=== PATIENT | female | born 1935 | race African-American/Black ===

== ENCOUNTER 2016-11-07 12:20 | Observation (INO) | payer MEDICARE ==
[~2016-11-07] VITALS: Ht 165.1 cm; Wt 73.7 kg
--- NOTE | 2016-11-07 13:00 | EKG ---
[facility] [address] [place] [address] Test Date: 2016-11-07 Test Time: 12:39:52 Pat Name: ROMANA WAGNER Department: Room: Gender: F Director [employer]oles[employer]: : 1935 Requested By: BRENDON VILLA Order Number: [id number] Reading MD: Measurements Intervals [place] Rate: 62 P: 39 ID: [id number] QRS: -18 QRSD: 86 T: 26 QT: 378 QTc: 386 Interpretive Statements SINUS RHYTHM LEFTWARD AXIS QRS(T) CONTOUR ABNORMALITY CONSIDER ANTEROLATERAL MYOCARDIAL DAMAGE RI6.01 Unconfirmed report No previous ECG available for comparison
[2016-11-07 13:09] LABS: BASO # 0.1 x10^3/uL (0.0-0.2); BASO % 2 % (0-3); EOS % 1 % (0-3); HEMATOCRIT 39.7 % (36.0-47.0); HEMOGLOBIN 12.3 g/dL (12.0-15.5); LYMPH # 2.3 x10^3/uL (1.0-4.8); LYMPH % 31 % (24-48); MEAN CORPUSCULAR HEMOGLOBIN 21 pg (25-35); MEAN CORPUSCULAR HGB CONC 31 g/dL (31-37); MEAN CORPUSCULAR VOLUME 69 fL (79-100); MONO % 8 % (0-9); NEUT % 58 % (31-73); PLATELET COUNT 220 x10^3/uL (140-400); RED BLOOD COUNT 5.74 x10^6/uL (3.50-5.40); RED CELL DISTRIBUTION WIDTH 16.1 % (11.5-14.5); WHITE BLOOD COUNT 7.6 x10^3/uL (4.0-11.0)
[2016-11-07 13:18] LABS: INR 1.2 (0.8-1.1); PROTHROMBIN TIME PATIENT 14.7 SEC (11.7-14.0)
[2016-11-07] MEDS ORDERED: LOSA25TA4 PO (13:29)
[2016-11-07] MEDS ORDERED: COLE3.754 PO (13:29)
[2016-11-07] MEDS ORDERED: CHOL100013 PO (13:29)
[2016-11-07] MEDS ORDERED: FURO20TA3 PO (13:29)
[2016-11-07] MEDS ORDERED: OMEG500C PO (13:29)
[2016-11-07] MEDS ORDERED: ASPI81TA2 PO (13:29)
[2016-11-07] MEDS ORDERED: POTA10CA PO (13:29)
[2016-11-07] MEDS ORDERED: CLON0.1T PO (13:29)
[2016-11-07] MEDS ORDERED: AMLO10TA2 PO (13:29)
[2016-11-07 13:33] LABS: CALCIUM 9.3 mg/dL (8.5-10.1); CREATININE 1.1 mg/dL (0.6-1.0); GFR 57.8; POTASSIUM 4.4 mmol/L (3.5-5.1)
[2016-11-07 13:39] LABS: ALBUMIN 4.1 g/dL (3.4-5.0); DIRECT BILIRUBIN 0.1 mg/dL (0.0-0.2); TOTAL BILIRUBIN 0.6 mg/dL (0.2-1.0); TOTAL PROTEIN 7.3 g/dL (6.4-8.2)
[2016-11-07] MEDS ORDERED: LABETALOL 20 MG/4 ML DISP.SYRIN. IVP ONE (13:45)
--- NOTE | 2016-11-07 13:54 | RAD ---
EXAM: CT head without contrast. HISTORY: Dizziness. TECHNIQUE: Computed tomography of the head was performed without intravenous contrast. COMPARISON: None. FINDINGS: There is no intracranial hemorrhage. Grover-white differentiation is preserved for patient age. The ventricles are normal in size and position. The visualized paranasal sinuses appear clear. The orbits are unremarkable. The temporal bones are unremarkable. The calvarium reveals no suspicious lesions. IMPRESSION: 1. No acute intracranial findings. *One or more of the following individualized dose reduction techniques were utilized for this examination: 1. Automated exposure control. 2. Adjustment of the mA and/or kV according to patient size. 3. Use of iterative reconstruction technique.
[2016-11-07] MEDS ORDERED: hydrALAZINE 20 MG/ML VIAL. IVP ONE ×2 (14:00→16:00)
[2016-11-07 14:01] LABS: BILIRUBIN,URINE NEGATIVE (NEG); GLUCOSE,URINE NEGATIVE (NEG); NITRITE,URINE NEGATIVE (NEG); PROTEIN,URINE NEGATIVE (NEG-TRACE); UROBILINOGEN,URINE 0.2 mg/dL (0.2 mg/dL)
--- NOTE | 2016-11-07 14:01 | RAD ---
Portable chest, 11/07/2016: History: Dizziness and facial numbness Comparison is made to a study from 10/29/2009. The heart is mildly enlarged. There is aortic calcific plaquing. The pulmonary vascularity is normal. No pulmonary infiltrates are seen. There is no evidence of pleural fluid. IMPRESSION: No acute cardiopulmonary abnormality is detected.
[2016-11-07 14:14] LABS: BACTERIA,URINE FEW /HPF (0-FEW); RBC,URINE 0 /HPF (0-2); SQUAMOUS EPITHELIAL CELL,UR FEW /LPF
[2016-11-07 15:20] LABS: PLT ESTIMATE ADEQUATE (ADEQUATE)
[2016-11-07 15:21] LABS: HYPOCHROMIA SLIGHT; MICROCYTOSIS MOD
[2016-11-07 15:22] LABS: ANISOCYTOSIS SLIGHT; POIKILOCYTOSIS SLIGHT
--- NOTE | 2016-11-07 16:01 | PHYS DOC ---
Past Medical History Past Medical History: High Cholesterol, Hypertension Past Surgical History: Hysterectomy, Other Additional Past Surgical Histo: nerve release in knee Alcohol Use: None Drug Use: None Adult General Chief Complaint Chief Complaint: DIZZY/LIGHT HEADED HPI HPI 81-year-old female presenting to the emergency department after being transferred from her primary care physician's office today after describing right-sided foot and arm numbness along with left-sided facial numbness. She denies any slurring of speech or weakness. She denies vision changes. This started approximately 2 or 3 days ago. Location brain. Duration intermittent. No alleviating factors present. Review of systems is negative for chest pain service of breath abdominal pain nausea vomiting diaphoresis. All other review of systems is negative unless otherwise noted in history of present illness. Review of Systems Review of Systems SEE ABOVE. Current Medications Current Medications Current Medications Medications (Trade) Dose Ordered Sig/Mary Grace Start Time Stop Time Status Last Admin Dose Admin Hydralazine HCl (Apresoline) 10 mg 1X ONCE 11/07/16 14:00 11/07/16 14:01 DC 11/07/16 13:59 10 MG Labetalol HCl (Normodyne) 20 mg 1X ONCE 11/07/16 13:45 11/07/16 13:50 DC Allergies Allergies Allergies Coded Allergies Type Severity Reaction Last Updated Verified penicillin Allergy Mild Rash 07/17/15 No Physical Exam Physical Exam Constitutional: Well developed, well nourished, no acute distress, non-toxic appearance. HENT: Normocephalic, atraumatic, bilateral external ears normal, oropharynx moist, no oral exudates, nose normal. [] Eyes: PERRLA, EOMI, conjunctiva normal, no discharge. Neck: Normal range of motion, no tenderness, supple, no stridor. [] Cardiovascular:Heart rate regular rhythm, no murmur [] Lungs & Thorax: Bilateral breath sounds clear to auscultation Abdomen: Bowel sounds normal, soft, no tenderness, no masses, no pulsatile masses. [] Skin: Warm, dry, no erythema, no rash. Back: No tenderness, no CVA tenderness. Extremities: No tenderness, no cyanosis, no clubbing, ROM intact, no edema. [] Neurologic: Mental status: Awake oriented and alert x3 Cranial nerves: Extraocular movements intact, eyebrows shonda bilaterally smile symmetric, uvula elevation, shoulder shrug intact, tongue protrusion normal Sensation: Patient reports decreased sensation in the right upper and right lower extremity. She also describes decreased sensation of the left face. Strength: 5/5 in upper and lower extremities bilaterally Psychologic: Affect normal, judgement normal, mood normal. [] Current Patient Data Vital Signs Vital Signs Date Time Temp Pulse Resp B/P Pulse Ox O2 Delivery O2 Flow Rate FiO2 11/07/16 15:48 66 16 202/85 100 Room Air 11/07/16 12:38 97.9 97.9 Lab Values Laboratory Tests Test 11/07/16 12:28 11/07/16 12:58 Urine Collection Type Unknown Urine Color Yellow Urine Clarity Clear Urine pH 5.0 Urine Specific [place] 1.015 Urine Protein Negativemg/dL (NEG-TRACE) Urine Glucose (UA) Negativemg/dL (NEG) Urine Ketones (Stick) Negativemg/dL (NEG) Urine Blood Negative (NEG) Urine Nitrite Negative (NEG) Urine Bilirubin Negative (NEG) Urine Urobilinogen Dipstick 0.2mg/dL (0.2 mg/dL) Urine Leukocyte Esterase Negative (NEG) Urine RBC 0/HPF (0-2) Urine WBC 5-10/HPF (0-4) Urine Squamous Epithelial Cells Few/LPF Urine Bacteria Few/HPF (0-FEW) Urine Hyaline Casts Occasional/HPF Urine Mucus Slight/LPF White Blood Count 7.6x10^3/uL (4.0-11.0) Red Blood Count 5.74x10^6/uL (3.50-5.40) H Hemoglobin 12.3g/dL (12.0-15.5) Hematocrit 39.7% (36.0-47.0) Mean Corpuscular Volume 69fL (79-100) L Mean Corpuscular Hemoglobin 21pg (25-35) L Mean Corpuscular Hemoglobin Concent 31g/dL (31-37) Red Cell Distribution Width 16.1% (11.5-14.5) H Platelet Count 220x10^3/uL (140-400) Neutrophils (%) (Auto) 58% (31-73) Lymphocytes (%) (Auto) 31% (24-48) Monocytes (%) (Auto) 8% (0-9) Eosinophils (%) (Auto) 1% (0-3) Basophils (%) (Auto) 2% (0-3) Neutrophils # (Auto) 4.4x10^3uL (1.8-7.7) Lymphocytes # (Auto) 2.3x10^3/uL (1.0-4.8) Monocytes # (Auto) 0.6x10^3/uL (0.0-1.1) Eosinophils # (Auto) 0.1x10^3/uL (0.0-0.7) Basophils # (Auto) 0.1x10^3/uL (0.0-0.2) Platelet Estimate Adequate (ADEQUATE) Hypochromasia Slight Poikilocytosis Slight Anisocytosis Slight Microcytosis Mod Prothrombin Time 14.7SEC (11.7-14.0) H Prothrombin Time INR 1.2 (0.8-1.1) H PTT 46SEC (24-38) H Sodium Level 144mmol/L (136-145) Potassium Level 4.4mmol/L (3.5-5.1) Chloride Level 107mmol/L (98-107) Carbon Dioxide Level 25mmol/L (21-32) Anion Gap 12 (6-14) Blood Urea Nitrogen 18mg/dL (7-20) Creatinine 1.1mg/dL (0.6-1.0) H Estimated GFR (Cockcroft-Gault) 57.8 Glucose Level 100mg/dL (70-99) H Calcium Level 9.3mg/dL (8.5-10.1) Total Bilirubin 0.6mg/dL (0.2-1.0) Direct Bilirubin 0.1mg/dL (0.0-0.2) Aspartate Amino Transferase (AST) 17U/L (15-37) Alanine Aminotransferase (ALT) 14U/L (14-59) Alkaline Phosphatase 84U/L (46-116) Troponin I Quantitative < 0.017ng/mL (0.000-0.055) Total Protein 7.3g/dL (6.4-8.2) Albumin 4.1g/dL (3.4-5.0) Lipase 145U/L (73-393) Laboratory Tests 11/07/16 12:58 Laboratory Tests 11/07/16 12:58 EKG EKG [] EKG not suggestive of ischemia. Sinus rhythm. Radiology/Procedures Radiology/Procedures [] Course & Med Decision Making Course & Med Decision Making Pertinent Labs and Imaging studies reviewed. (See chart for details) [] 81-year-old female presenting to the emergency department today with left- sided facial numbness and right upper and lower extremity numbness. Vital signs showed significant hypertension which was treated with hydralazine. Physical exam showed sensory numbness and tingling in an anatomic distribution. Otherwise neurologic exam was unremarkable. Head CT unremarkable. EKG unremarkable. CBC shows normal hemoglobin and white blood cell count. Urinalysis not suggestive of infection. Chemistry panel otherwise unremarkable. Troponin negative. The patient was then admitted to our hospital for further evaluation workup care including MRI and neurology consultation given the anatomic distribution of the patient's sensory changes. Dragon Disclaimer Dragon Disclaimer This electronic medical record was generated, in whole or in part, using a voice recognition dictation system. Departure Departure Impression: Primary Impression: Numbness of right hand Additional Impressions: Numbness in right leg Numbness and tingling of left side of face Disposition: ADMITTED INPATIENT Admitting Physician: Other ([place]) Condition: STABLE Referrals: ARSLAN CERNA MD (PCP) Problem Qualifiers BRENDON VILLA MD Nov 07, 2016 16:01
[2016-11-07] MEDS ORDERED: MORPHINE SULFATE 2 MG/ML DISP.SYRIN. IV PRN (16:15)
[2016-11-07] MEDS ORDERED: ONDANSETRON PF 4 MG/2 ML VIAL. IV PRN (16:15)
[2016-11-07 17:43] VITALS: BP 154/69
[2016-11-07] MEDS ORDERED: PROMETHAZINE 6.25 MG in IV NORMAL SALINE 50ML 50 ML IV PRN (18:45)
[2016-11-07 19:00] VITALS: BP 180/67
[2016-11-07] MEDS: ACETAMINOPHEN 325 MG TABLET. PO PRN (19:59)
[2016-11-07 23:00] VITALS: BP 149/54
[2016-11-08] VITALS (7 sets, daily range): BP systolic 130–184; BP diastolic 50–67
[2016-11-08] MEDS: ACETAMINOPHEN 325 MG TABLET. PO PRN ×3 (03:18→21:18)
[2016-11-08 04:52] LABS: BASO % 0 % (0-3); EOS % 0 % (0-3); HEMATOCRIT 38.8 % (36.0-47.0); HEMOGLOBIN 11.9 g/dL (12.0-15.5); LYMPH # 1.7 x10^3/uL (1.0-4.8); LYMPH % 14 % (24-48); MEAN CORPUSCULAR HEMOGLOBIN 21 pg (25-35); MEAN CORPUSCULAR HGB CONC 31 g/dL (31-37); MEAN CORPUSCULAR VOLUME 69 fL (79-100); MONO % 7 % (0-9); NEUT % 80 % (31-73); PLATELET COUNT 234 x10^3/uL (140-400); RED BLOOD COUNT 5.61 x10^6/uL (3.50-5.40); RED CELL DISTRIBUTION WIDTH 15.7 % (11.5-14.5); WHITE BLOOD COUNT 12.7 x10^3/uL (4.0-11.0)
[2016-11-08 05:26] LABS: CALCIUM 9.1 mg/dL (8.5-10.1); CREATININE 1.3 mg/dL (0.6-1.0); GFR 47.7; POTASSIUM 4.1 mmol/L (3.5-5.1)
--- NOTE | 2016-11-08 08:37 | PDOC1 ---
History and Physical Date of Admission Date of Admission DATE: 11/07/16 Identification/Chief Complaint Chief Complaint Numbness left side of face and right arm Source Source: Patient History of Present Illness History of Present Illness Pt states that her symptoms started 2 weeks ago with numbness of the left side of her face, right arm and in both feet. She states that it seems to come and go. She was also experiencing dizziness. Pt initially had an appointment to be seen 11/26/16, but was able to get an earlier appointment to see Dr. Gill yesterday and was immediately sent to the hospital for evaluation. She says that since her blood pressure has been treated, her symptoms have resolved. She had some nausea yesterday from receiving medications on an empty stomach but says that those symptoms are better as well. She has not missed any doses of medication at home. Past Medical History Cardiovascular: HTN Pulmonary: No pertinent hx GI: No pertinent hx Heme/Onc: No pertinent hx Hepatobiliary: No pertinent hx Psych: No pertinent hx Musculoskeletal: Osteoarthritis Rheumatologic: No pertinent hx Infectious disease: No pertinent hx ENT: No pertinent hx Renal/: Chronic renal insuff Endocrine: No pertinent hx Dermatology: No pertinent hx Past Surgical History Past Surgical History: Cataract Removal, Hysterectomy, Other (Rectocele Repair , Left knee surgery) Family History Family History: Cancer, Coronary Artery Disease, Heart Disease Social History Smoke: No ALCOHOL: occassional Drugs: None Current Problem List Problem List Problems Medical Problems: (1) Numbness and tingling of left side of face Status: Acute (2) Numbness in right leg Status: Acute (3) Numbness of right hand Status: Acute Problems: Current Medications Current Medications Current Medications Labetalol HCl (Normodyne) 20 mg 1X ONCE IVP ; Start 11/07/16 at 13:45; Stop 06/16 at 13:50; Status DC Hydralazine HCl (Apresoline) 10 mg 1X ONCE IVP Last administered on 11/07/16 13:59; Start 11/07/16 at 14:00; Stop 11/07/16 at 14:01; Status DC Hydralazine HCl (Apresoline) 10 mg 1X ONCE IVP Last administered on 11/07/16 16:22; Start 11/07/16 at 16:00; Stop 11/07/16 at 16:02; Status DC Ondansetron HCl (Zofran) 4 mg PRN Q8HRS PRN IV NAUSEA/VOMITING Last administered on 11/07/16 17:08; Start 11/07/16 at 16:15; Stop 11/08/16 at 16:14 Morphine Sulfate 2 mg 2 mg PRN Q2HR PRN IV PAIN; Start 11/07/16 at 16:15; Stop 11/08/16 at 16:14 Promethazine HCl/ Sodium Chloride (Phenergan/Iv Sodium Chloride 0.9% 50ml) 50.25 ml @ 150.75 mls/ hr PRN Q6HRS PRN IV NAUSEA/VOMITING Last administered on 11/07/16 19:28; Start 11/07/16 at 18:45 Acetaminophen (Tylenol) 650 mg PRN Q6HRS PRN PO MILD PAIN / TEMP Last administered on 11/08/16 03:18; Start 11/07/16 at 20:00 Active Scripts Active Reported Fish Oil ([place]-3 Fatty Acids) 500 Mg Capsule.dr Unknown Dose PO DAILY Vitamin D (Cholecalciferol (Vitamin D3)) 1,000 Unit Capsule Unknown Dose PO DAILY Aspirin 81 Mg Tab.chew 1 Tab PO DAILY Welchol (Colesevelam Hcl) 3.75 Gm Powd.pack 3.75 Gm PO DAILY Losartan Potassium 25 Mg Tablet Unknown Dose PO DAILY Furosemide 20 Mg Tablet Unknown Dose PO DAILY Potassium Chloride 10 Meq Capsule.er Unknown Dose PO DAILY Amlodipine Besylate 10 Mg Tablet 10 Mg PO DAILY Clonidine Hcl 0.1 Mg Tablet Unknown Dose PO BID Allergies Allergies: Coded Allergies: penicillin (Unverified Allergy, Mild, Rash, 07/17/15) ROS General: No: Chills, Fatigue, Night Sweats PSYCHOLOGICAL ROS: No: Anxiety, Depression Eyes: No Decreased vision, No Eye Pain HEENT: No: Nasal congestion, Sore Throat ALLERGY AND IMMUNOLOGY: No: Hives, Post Nasal Drip Hematological and Lymphatic: No: Bleeding Problems, Blood Clots Respiratory: No: Cough, Shortness of breath Cardiovascular: No Chest Pain, No Edema, No Palpitations Gastrointestinal: Yes Nausea, No Abdominal Pain, No Constipation, No Diarrhea, No Vomiting Genitourinary: No Dysuria, No Urgency Musculoskeletal: No Gait Disturbance, No Joint Pain Neurological: Yes Dizziness, Yes Headaches, Yes Numbness/Tingling, No Confusion, No Impaired Coord/balance, No Weakness Skin: No Rash, No Skin Lesion Changes Physical Exam General: Alert, Oriented X3, Cooperative, No acute distress HEENT: Atraumatic, PERRLA, EOMI, Mucous membr. moist/pink Lungs: Clear to auscultation, Normal air movement Heart: RRR, no rubs, no gallops, no murmurs Abdomen: Normal bowel sounds, Soft, No tenderness, No hepatosplenomegaly Extremities: No clubbing, No cyanosis, No edema Skin: No rashes, No significant lesion Neuro: Normal speech, Normal tone, Cranial nerves 3-12 NL Psych/Mental Status: Mental status NL, Mood NL Vitals Vitals Vital Signs Date Time Temp Pulse Resp B/P Pulse Ox O2 Delivery O2 Flow Rate FiO2 11/08/16 08:09 79 168/60 11/08/16 07:00 98.4 17 97 Room Air 98.4 Labs Labs Laboratory Tests Test 11/07/16 12:28 11/07/16 12:58 11/08/16 04:00 Urine Collection Type Unknown Urine Color Yellow Urine Clarity Clear Urine pH 5.0 Urine Specific [place] 1.015 Urine Protein Negativemg/dL (NEG-TRACE) Urine Glucose (UA) Negativemg/dL (NEG) Urine Ketones (Stick) Negativemg/dL (NEG) Urine Blood Negative (NEG) Urine Nitrite Negative (NEG) Urine Bilirubin Negative (NEG) Urine Urobilinogen Dipstick 0.2mg/dL (0.2 mg/dL) Urine Leukocyte Esterase Negative (NEG) Urine RBC 0/HPF (0-2) Urine WBC 5-10/HPF (0-4) Urine Squamous Epithelial Cells Few/LPF Urine Bacteria Few/HPF (0-FEW) Urine Hyaline Casts Occasional/HPF Urine Mucus Slight/LPF White Blood Count 7.6x10^3/uL (4.0-11.0) 12.7x10^3/uL (4.0-11.0) Red Blood Count 5.74x10^6/uL (3.50-5.40) 5.61x10^6/uL (3.50-5.40) Hemoglobin 12.3g/dL (12.0-15.5) 11.9g/dL (12.0-15.5) Hematocrit 39.7% (36.0-47.0) 38.8% (36.0-47.0) Mean Corpuscular Volume 69fL (79-100) 69fL (79-100) Mean Corpuscular Hemoglobin 21pg (25-35) 21pg (25-35) Mean Corpuscular Hemoglobin Concent 31g/dL (31-37) 31g/dL (31-37) Red Cell Distribution Width 16.1% (11.5-14.5) 15.7% (11.5-14.5) Platelet Count 220x10^3/uL (140-400) 234x10^3/uL (140-400) Neutrophils (%) (Auto) 58% (31-73) 80% (31-73) Lymphocytes (%) (Auto) 31% (24-48) 14% (24-48) Monocytes (%) (Auto) 8% (0-9) 7% (0-9) Eosinophils (%) (Auto) 1% (0-3) 0% (0-3) Basophils (%) (Auto) 2% (0-3) 0% (0-3) Neutrophils # (Auto) 4.4x10^3uL (1.8-7.7) 10.1x10^3uL (1.8-7.7) Lymphocytes # (Auto) 2.3x10^3/uL (1.0-4.8) 1.7x10^3/uL (1.0-4.8) Monocytes # (Auto) 0.6x10^3/uL (0.0-1.1) 0.8x10^3/uL (0.0-1.1) Eosinophils # (Auto) 0.1x10^3/uL (0.0-0.7) 0.0x10^3/uL (0.0-0.7) Basophils # (Auto) 0.1x10^3/uL (0.0-0.2) 0.0x10^3/uL (0.0-0.2) Platelet Estimate Adequate (ADEQUATE) Hypochromasia Slight Poikilocytosis Slight Anisocytosis Slight Microcytosis Mod Prothrombin Time 14.7SEC (11.7-14.0) Prothromb Time International Ratio 1.2 (0.8-1.1) Activated Partial Thromboplast Time 46SEC (24-38) Sodium Level 144mmol/L (136-145) 144mmol/L (136-145) Potassium Level 4.4mmol/L (3.5-5.1) 4.1mmol/L (3.5-5.1) Chloride Level 107mmol/L (98-107) 107mmol/L (98-107) Carbon Dioxide Level 25mmol/L (21-32) 24mmol/L (21-32) Anion Gap 12 (6-14) 13 (6-14) Blood Urea Nitrogen 18mg/dL (7-20) 19mg/dL (7-20) Creatinine 1.1mg/dL (0.6-1.0) 1.3mg/dL (0.6-1.0) Estimated GFR (Cockcroft-Gault) 57.8 47.7 Glucose Level 100mg/dL (70-99) 121mg/dL (70-99) Calcium Level 9.3mg/dL (8.5-10.1) 9.1mg/dL (8.5-10.1) Total Bilirubin 0.6mg/dL (0.2-1.0) Direct Bilirubin 0.1mg/dL (0.0-0.2) Aspartate Amino Transf (AST/SGOT) 17U/L (15-37) Alanine Aminotransferase (ALT/SGPT) 14U/L (14-59) Alkaline Phosphatase 84U/L (46-116) Troponin I Quantitative < 0.017ng/mL (0.000-0.055) Total Protein 7.3g/dL (6.4-8.2) Albumin 4.1g/dL (3.4-5.0) Lipase 145U/L (73-393) Laboratory Tests Test 11/07/16 12:28 11/07/16 12:58 11/08/16 04:00 Urine Collection Type Unknown Urine Color Yellow Urine Clarity Clear Urine pH 5.0 Urine Specific [place] 1.015 Urine Protein Negativemg/dL (NEG-TRACE) Urine Glucose (UA) Negativemg/dL (NEG) Urine Ketones (Stick) Negativemg/dL (NEG) Urine Blood Negative (NEG) Urine Nitrite Negative (NEG) Urine Bilirubin Negative (NEG) Urine Urobilinogen Dipstick 0.2mg/dL (0.2 mg/dL) Urine Leukocyte Esterase Negative (NEG) Urine RBC 0/HPF (0-2) Urine WBC 5-10/HPF (0-4) Urine Squamous Epithelial Cells Few/LPF Urine Bacteria Few/HPF (0-FEW) Urine Hyaline Casts Occasional/HPF Urine Mucus Slight/LPF White Blood Count 7.6x10^3/uL (4.0-11.0) 12.7x10^3/uL (4.0-11.0) Red Blood Count 5.74x10^6/uL (3.50-5.40) 5.61x10^6/uL (3.50-5.40) Hemoglobin 12.3g/dL (12.0-15.5) 11.9g/dL (12.0-15.5) Hematocrit 39.7% (36.0-47.0) 38.8% (36.0-47.0) Mean Corpuscular Volume 69fL (79-100) 69fL (79-100) Mean Corpuscular Hemoglobin 21pg (25-35) 21pg (25-35) Mean Corpuscular Hemoglobin Concent 31g/dL (31-37) 31g/dL (31-37) Red Cell Distribution Width 16.1% (11.5-14.5) 15.7% (11.5-14.5) Platelet Count 220x10^3/uL (140-400) 234x10^3/uL (140-400) Neutrophils (%) (Auto) 58% (31-73) 80% (31-73) Lymphocytes (%) (Auto) 31% (24-48) 14% (24-48) Monocytes (%) (Auto) 8% (0-9) 7% (0-9) Eosinophils (%) (Auto) 1% (0-3) 0% (0-3) Basophils (%) (Auto) 2% (0-3) 0% (0-3) Neutrophils # (Auto) 4.4x10^3uL (1.8-7.7) 10.1x10^3uL (1.8-7.7) Lymphocytes # (Auto) 2.3x10^3/uL (1.0-4.8) 1.7x10^3/uL (1.0-4.8) Monocytes # (Auto) 0.6x10^3/uL (0.0-1.1) 0.8x10^3/uL (0.0-1.1) Eosinophils # (Auto) 0.1x10^3/uL (0.0-0.7) 0.0x10^3/uL (0.0-0.7) Basophils # (Auto) 0.1x10^3/uL (0.0-0.2) 0.0x10^3/uL (0.0-0.2) Platelet Estimate Adequate (ADEQUATE) Hypochromasia Slight Poikilocytosis Slight Anisocytosis Slight Microcytosis Mod Prothrombin Time 14.7SEC (11.7-14.0) Prothromb Time International Ratio 1.2 (0.8-1.1) Activated Partial Thromboplast Time 46SEC (24-38) Sodium Level 144mmol/L (136-145) 144mmol/L (136-145) Potassium Level 4.4mmol/L (3.5-5.1) 4.1mmol/L (3.5-5.1) Chloride Level 107mmol/L (98-107) 107mmol/L (98-107) Carbon Dioxide Level 25mmol/L (21-32) 24mmol/L (21-32) Anion Gap 12 (6-14) 13 (6-14) Blood Urea Nitrogen 18mg/dL (7-20) 19mg/dL (7-20) Creatinine 1.1mg/dL (0.6-1.0) 1.3mg/dL (0.6-1.0) Estimated GFR (Cockcroft-Gault) 57.8 47.7 Glucose Level 100mg/dL (70-99) 121mg/dL (70-99) Calcium Level 9.3mg/dL (8.5-10.1) 9.1mg/dL (8.5-10.1) Total Bilirubin 0.6mg/dL (0.2-1.0) Direct Bilirubin 0.1mg/dL (0.0-0.2) Aspartate Amino Transf (AST/SGOT) 17U/L (15-37) Alanine Aminotransferase (ALT/SGPT) 14U/L (14-59) Alkaline Phosphatase 84U/L (46-116) Troponin I Quantitative < 0.017ng/mL (0.000-0.055) Total Protein 7.3g/dL (6.4-8.2) Albumin 4.1g/dL (3.4-5.0) Lipase 145U/L (73-393) VTE Prophylaxis Ordered VTE Prophylaxis Devices: Yes VTE Pharmacological Prophylaxi: No Assessment/Plan Assessment/Plan Pt is a 81yo AAF admitted with concern for possible stroke 1)Facial/extremity numbness- initial CT WNL. MRI ordered for this morning. Symptoms likely exacerbated by uncontrolled HTN. Currently resolved. Nuerology consulted in ER. Pt on ASA 325mg 2)HTN- pt received several doses of IV hydralazine yesterday. Pt restarted on home medications this morning of Norvasc 5mg, Losartan 100mg, Lasix 20mg and Clonidine 0.1mg BID. CTM 3)CKD- unsure of pt's baseline. Cr currently elevated to 1.3. CTM 4)Leukocytosis- pt's WBC increased from initial WBC of 7.6 on admission. No infectious symptoms, possibly reactive. U/A was equivocal, pt asymptomatic, culture pending. FARAZ ONEILL MD Nov 08, 2016 08:37
[2016-11-08] MEDS: ASPIRIN 325 MG TABLET PO SCH (08:51)
[2016-11-08] MEDS: CLONIDINE HCL 0.1 MG TABLET PO SCH ×2 (08:51→21:18)
[2016-11-08] MEDS: POTASSIUM CHLORIDE 10 MEQ TABLET.ER. PO SCH (08:51)
[2016-11-08] MEDS: LOSARTAN POTASSIUM 50 MG TABLET. PO SCH (08:52)
[2016-11-08] MEDS: FUROSEMIDE 20 MG TABLET PO SCH (08:52)
[2016-11-08] MEDS: AMLODIPINE BESYLATE 5 MG TABLET PO SCH (08:53)
[2016-11-08] MEDS ORDERED: GADOBUTROL 7.5 MMOL/7.5 ML VIAL IV ONE (12:30)
--- NOTE | 2016-11-08 12:59 | RAD ---
Exam performed: MRI brain without and with contrast. History: Sensory changes, left facial tingling and dizziness with numbness of all extremities, headache since yesterday. Date of service: 11/08/16. Comparison made to a CT head from 11/07/16. Technique: Routine multiplanar and multiple sequence imaging of the brain is performed and images are obtained before and after intravenous administration of 7 cc of gadolinium rest intravenously. Findings: There are no areas of restricted diffusion to suggest an acute ischemic event. Ventricles are midline without evidence of dilatation. Normal serrato-white differentiation is maintained. There are areas of increased signal in both periventricular and subcortical deep white matter cyst and small vessel ischemic changes. There is no extra axial fluid collection, intraparenchymal hemorrhage, mass or acute infarct. Normal vascular flow voids are identified. No abnormal enhancing lesion is identified. Visualized orbits, paranasal sinuses and the mastoid air cells are clear. Impression: 1. Spotty areas of increased signal in both periventricular and subcortical deep white matter suggesting small vessel ischemic changes. 2. No acute abnormality identified.
--- NOTE | 2016-11-08 13:55 | PDOC2 ---
NEUROLOGY CONSULT Date of Admission Date of Admission DATE: 11/08/16 TIME: 13:51 Reason for Consult Reason for Consult: Numbness Referring Physician Referring Physician: Dr. Sanders Source Source: Chart review, Patient History of Present Illness History of Present Illness The patient is an 81-year-old right-handed female who for the past 2 weeks has had numbness on the left side of the face, in the right arm, and in both feet. She saw Dr. Gill in the office yesterday and was sent to the hospital because of hypertension. Since treatment of the blood pressure, the symptoms have abated. The patient has no history of stroke, seizure, or head injury. She denies any other neurological complaints. Past Medical History Cardiovascular: HTN, Hyperlipidemia Endocrine: Diabetes Past Surgical History Past Surgical History: Hysterectomy, Other (knee) Family History Family History: CAD Social History Social History No tobacco or alcohol Current Medications Current Medications Current Medications Labetalol HCl (Normodyne) 20 mg 1X ONCE IVP ; Start 11/07/16 at 13:45; Stop 06/16 at 13:50; Status DC Hydralazine HCl (Apresoline) 10 mg 1X ONCE IVP Last administered on 11/07/16 13:59; Start 11/07/16 at 14:00; Stop 11/07/16 at 14:01; Status DC Hydralazine HCl (Apresoline) 10 mg 1X ONCE IVP Last administered on 11/07/16 16:22; Start 11/07/16 at 16:00; Stop 11/07/16 at 16:02; Status DC Ondansetron HCl (Zofran) 4 mg PRN Q8HRS PRN IV NAUSEA/VOMITING Last administered on 11/07/16 17:08; Start 11/07/16 at 16:15; Stop 11/08/16 at 16:14 Morphine Sulfate 2 mg 2 mg PRN Q2HR PRN IV PAIN; Start 11/07/16 at 16:15; Stop 11/08/16 at 16:14 Promethazine HCl/ Sodium Chloride (Phenergan/Iv Sodium Chloride 0.9% 50ml) 50.25 ml @ 150.75 mls/ hr PRN Q6HRS PRN IV NAUSEA/VOMITING Last administered on 11/07/16 19:28; Start 11/07/16 at 18:45 Acetaminophen (Tylenol) 650 mg PRN Q6HRS PRN PO MILD PAIN / TEMP Last administered on 11/08/16 08:53; Start 11/07/16 at 20:00 Amlodipine Besylate (Norvasc) 5 mg DAILY PO Last administered on 11/08/16 08: 53; Start 11/08/16 at 09:30 Clonidine HCl (Catapres) 0.1 mg BID PO Last administered on 11/08/16 08:51; Start 11/08/16 at 09:30 Furosemide (Lasix) 20 mg DAILY PO Last administered on 11/08/16 08:52; Start 11/08/16 at 09:30 Losartan Potassium (Cozaar) 100 mg DAILY PO Last administered on 11/08/16 08: 52; Start 11/08/16 at 09:30 Potassium Chloride (Klor-Con) 10 meq DAILYWBKFT PO Last administered on 08:51; Start 11/08/16 at 09:30 Aspirin ([employer] Aspirin) 325 mg DAILYWBKFT PO Last administered on 11/08/16 08: 51; Start 11/08/16 at 09:00 Gadobutrol (Gadavist) 7 mmol 1X ONCE IV Last administered on 11/08/16 12:40; Start 11/08/16 at 12:30; Stop 11/08/16 at 12:31; Status DC Active Scripts Active Reported Fish Oil ([place]-3 Fatty Acids) 500 Mg Capsule.dr Unknown Dose PO DAILY Vitamin D (Cholecalciferol (Vitamin D3)) 1,000 Unit Capsule Unknown Dose PO DAILY Aspirin 81 Mg Tab.chew 1 Tab PO DAILY Welchol (Colesevelam Hcl) 3.75 Gm Powd.pack 3.75 Gm PO DAILY Losartan Potassium 25 Mg Tablet Unknown Dose PO DAILY Furosemide 20 Mg Tablet Unknown Dose PO DAILY Potassium Chloride 10 Meq Capsule.er Unknown Dose PO DAILY Amlodipine Besylate 10 Mg Tablet 10 Mg PO DAILY Clonidine Hcl 0.1 Mg Tablet Unknown Dose PO BID Allergies Allergies: Coded Allergies: penicillin (Unverified Allergy, Mild, Rash, 07/17/15) ROS Review of System Patient denies fevers, chills, weight loss, dyspnea, angina, abdominal pain, change in bowels, or dysuria. 14 point review of systems is negative. Physical Exam Physical Examination PHYSICAL EXAMINATION: Vital signs: see above. General appearance is normal and in no acute distress. HEENT: Normocephalic and nontraumatic. Eyes, nose, ears, and throat are unremarkable. Neck is supple. No lymphadenopathy. No bruits are heard over the carotid artery. No crepitus. NEUROLOGICAL EXAMINATION: Mental Status Examination: Alert. Oriented to time, place, and person. Answers questions and follows commends. Pupils are equal round and reactive to light and accommodation. Funduscopic exam: No papilledema. Extraocular movements are intact. Visual field exam shows no defect on the direct confrontation. No motor or sensory deficits on the facial exam. Uvula in the midline and the soft palate elevated symmetrically. No deviation of the tongue to any direction. Gross hearing is normal. Shoulder shrug normal. Muscle tone is normal. Muscle strength is 5. Deep tendon reflexes are 2+ all around. Plantar reflex is with flexion response bilaterally. [id number] test performance is accurate. Tandem walk test is accurate. Alternative movements are accurate. Romberg test is negative. Gait is normal. Sensory exam shows no deficits. No cerebellar signs are elicited. Vitals VITALS Vital Signs Date Time Temp Pulse Resp B/P Pulse Ox O2 Delivery O2 Flow Rate FiO2 11/08/16 10:54 98.8 83 17 177/64 97 Room Air 98.8 Labs Labs Laboratory Tests Test 11/07/16 12:28 11/07/16 12:58 11/08/16 04:00 Urine Collection Type Unknown Urine Color Yellow Urine Clarity Clear Urine pH 5.0 Urine Specific [place] 1.015 Urine Protein Negativemg/dL (NEG-TRACE) Urine Glucose (UA) Negativemg/dL (NEG) Urine Ketones (Stick) Negativemg/dL (NEG) Urine Blood Negative (NEG) Urine Nitrite Negative (NEG) Urine Bilirubin Negative (NEG) Urine Urobilinogen Dipstick 0.2mg/dL (0.2 mg/dL) Urine Leukocyte Esterase Negative (NEG) Urine RBC 0/HPF (0-2) Urine WBC 5-10/HPF (0-4) Urine Squamous Epithelial Cells Few/LPF Urine Bacteria Few/HPF (0-FEW) Urine Hyaline Casts Occasional/HPF Urine Mucus Slight/LPF White Blood Count 7.6x10^3/uL (4.0-11.0) 12.7x10^3/uL (4.0-11.0) Red Blood Count 5.74x10^6/uL (3.50-5.40) 5.61x10^6/uL (3.50-5.40) Hemoglobin 12.3g/dL (12.0-15.5) 11.9g/dL (12.0-15.5) Hematocrit 39.7% (36.0-47.0) 38.8% (36.0-47.0) Mean Corpuscular Volume 69fL (79-100) 69fL (79-100) Mean Corpuscular Hemoglobin 21pg (25-35) 21pg (25-35) Mean Corpuscular Hemoglobin Concent 31g/dL (31-37) 31g/dL (31-37) Red Cell Distribution Width 16.1% (11.5-14.5) 15.7% (11.5-14.5) Platelet Count 220x10^3/uL (140-400) 234x10^3/uL (140-400) Neutrophils (%) (Auto) 58% (31-73) 80% (31-73) Lymphocytes (%) (Auto) 31% (24-48) 14% (24-48) Monocytes (%) (Auto) 8% (0-9) 7% (0-9) Eosinophils (%) (Auto) 1% (0-3) 0% (0-3) Basophils (%) (Auto) 2% (0-3) 0% (0-3) Neutrophils # (Auto) 4.4x10^3uL (1.8-7.7) 10.1x10^3uL (1.8-7.7) Lymphocytes # (Auto) 2.3x10^3/uL (1.0-4.8) 1.7x10^3/uL (1.0-4.8) Monocytes # (Auto) 0.6x10^3/uL (0.0-1.1) 0.8x10^3/uL (0.0-1.1) Eosinophils # (Auto) 0.1x10^3/uL (0.0-0.7) 0.0x10^3/uL (0.0-0.7) Basophils # (Auto) 0.1x10^3/uL (0.0-0.2) 0.0x10^3/uL (0.0-0.2) Platelet Estimate Adequate (ADEQUATE) Hypochromasia Slight Poikilocytosis Slight Anisocytosis Slight Microcytosis Mod Prothrombin Time 14.7SEC (11.7-14.0) Prothromb Time International Ratio 1.2 (0.8-1.1) Activated Partial Thromboplast Time 46SEC (24-38) Sodium Level 144mmol/L (136-145) 144mmol/L (136-145) Potassium Level 4.4mmol/L (3.5-5.1) 4.1mmol/L (3.5-5.1) Chloride Level 107mmol/L (98-107) 107mmol/L (98-107) Carbon Dioxide Level 25mmol/L (21-32) 24mmol/L (21-32) Anion Gap 12 (6-14) 13 (6-14) Blood Urea Nitrogen 18mg/dL (7-20) 19mg/dL (7-20) Creatinine 1.1mg/dL (0.6-1.0) 1.3mg/dL (0.6-1.0) Estimated GFR (Cockcroft-Gault) 57.8 47.7 Glucose Level 100mg/dL (70-99) 121mg/dL (70-99) Calcium Level 9.3mg/dL (8.5-10.1) 9.1mg/dL (8.5-10.1) Total Bilirubin 0.6mg/dL (0.2-1.0) Direct Bilirubin 0.1mg/dL (0.0-0.2) Aspartate Amino Transf (AST/SGOT) 17U/L (15-37) Alanine Aminotransferase (ALT/SGPT) 14U/L (14-59) Alkaline Phosphatase 84U/L (46-116) Troponin I Quantitative < 0.017ng/mL (0.000-0.055) Total Protein 7.3g/dL (6.4-8.2) Albumin 4.1g/dL (3.4-5.0) Lipase 145U/L (73-393) Laboratory Tests Test 11/08/16 04:00 White Blood Count 12.7x10^3/uL (4.0-11.0) Red Blood Count 5.61x10^6/uL (3.50-5.40) Hemoglobin 11.9g/dL (12.0-15.5) Hematocrit 38.8% (36.0-47.0) Mean Corpuscular Volume 69fL (79-100) Mean Corpuscular Hemoglobin 21pg (25-35) Mean Corpuscular Hemoglobin Concent 31g/dL (31-37) Red Cell Distribution Width 15.7% (11.5-14.5) Platelet Count 234x10^3/uL (140-400) Neutrophils (%) (Auto) 80% (31-73) Lymphocytes (%) (Auto) 14% (24-48) Monocytes (%) (Auto) 7% (0-9) Eosinophils (%) (Auto) 0% (0-3) Basophils (%) (Auto) 0% (0-3) Neutrophils # (Auto) 10.1x10^3uL (1.8-7.7) Lymphocytes # (Auto) 1.7x10^3/uL (1.0-4.8) Monocytes # (Auto) 0.8x10^3/uL (0.0-1.1) Eosinophils # (Auto) 0.0x10^3/uL (0.0-0.7) Basophils # (Auto) 0.0x10^3/uL (0.0-0.2) Sodium Level 144mmol/L (136-145) Potassium Level 4.1mmol/L (3.5-5.1) Chloride Level 107mmol/L (98-107) Carbon Dioxide Level 24mmol/L (21-32) Anion Gap 13 (6-14) Blood Urea Nitrogen 19mg/dL (7-20) Creatinine 1.3mg/dL (0.6-1.0) Estimated GFR (Cockcroft-Gault) 47.7 Glucose Level 121mg/dL (70-99) Calcium Level 9.1mg/dL (8.5-10.1) Images Images Brain MRI: 1. Spotty areas of increased signal in both periventricular and subcortical deep white matter suggesting small vessel ischemic changes. 2. No acute abnormality identified. Assessment/Plan Assessment/Plan Impression: Neurological symptoms due to hypertensive encephalopathy, no evidence of stroke on bedside exam or MRI Recommendations: MRI already done Okay for discharge when blood pressure controlled Daily aspirin. Follow-up with neurology as needed. Thank you for letting me help with the patient's care. ELSIE DEL RIO MD Nov 08, 2016 13:55
[2016-11-09] VITALS (8 sets, daily range): BP systolic 141–197; BP diastolic 48–72
[2016-11-09] MEDS: CLONIDINE HCL 0.1 MG TABLET PO SCH ×2 (06:17→20:28)
[2016-11-09 07:01] LABS: CALCIUM 9.1 mg/dL (8.5-10.1); CREATININE 1.2 mg/dL (0.6-1.0); GFR 52.3; POTASSIUM 4.1 mmol/L (3.5-5.1)
[2016-11-09 07:03] LABS: BASO # 0.1 x10^3/uL (0.0-0.2); BASO % 1 % (0-3); EOS % 2 % (0-3); HEMATOCRIT 38.4 % (36.0-47.0); HEMOGLOBIN 11.9 g/dL (12.0-15.5); LYMPH # 3.6 x10^3/uL (1.0-4.8); LYMPH % 41 % (24-48); MEAN CORPUSCULAR HEMOGLOBIN 21 pg (25-35); MEAN CORPUSCULAR HGB CONC 31 g/dL (31-37); MEAN CORPUSCULAR VOLUME 69 fL (79-100); MONO % 9 % (0-9); NEUT % 47 % (31-73); PLATELET COUNT 222 x10^3/uL (140-400); RED BLOOD COUNT 5.54 x10^6/uL (3.50-5.40); RED CELL DISTRIBUTION WIDTH 15.9 % (11.5-14.5); WHITE BLOOD COUNT 8.7 x10^3/uL (4.0-11.0)
[2016-11-09] MEDS: ASPIRIN 325 MG TABLET PO SCH (08:07)
[2016-11-09] MEDS: LOSARTAN POTASSIUM 50 MG TABLET. PO SCH (08:08)
[2016-11-09] MEDS: POTASSIUM CHLORIDE 10 MEQ TABLET.ER. PO SCH (08:08)
[2016-11-09] MEDS: FUROSEMIDE 20 MG TABLET PO SCH (08:09)
[2016-11-09] MEDS: AMLODIPINE BESYLATE 5 MG TABLET PO SCH (08:09)
[2016-11-09] MEDS: ACETAMINOPHEN 325 MG TABLET. PO PRN ×2 (08:13→20:26)
--- NOTE | 2016-11-09 09:06 | PDOC ---
SUBJECTIVE Subjective Pt's blood pressure spiked overnight and pt is currently having tingling in the left side of her face and in her feet again. Denies chest pain or shortness of air. Otherwise doing well. OBJECTIVE Vital Signs Vital Signs Date Time Temp Pulse Resp B/P Pulse Ox O2 Delivery O2 Flow Rate FiO2 11/09/16 08:09 69 197/72 11/09/16 08:08 69 197/72 11/09/16 07:00 98.1 69 18 197/72 97 Room Air 98.1 11/09/16 06:17 72 213/81 11/09/16 03:00 97.9 52 18 147/48 96 Room Air 97.9 11/08/16 22:00 98.1 60 17 165/56 98 Room Air 98.1 11/08/16 21:18 60 131/62 11/08/16 20:00 Room Air 11/08/16 19:00 98.3 60 17 131/62 97 Room Air 98.3 11/08/16 15:40 97.9 94 17 148/64 98 Room Air 97.9 11/08/16 10:54 98.8 83 17 177/64 97 Room Air 98.8 I & O Intake and Output 11/09/16 07:00 Intake Total 680 ml Balance 680 ml Intake Oral 680 ml # Voids 5 PHYSICAL EXAM Physical Exam General: Alert, Oriented X3, Cooperative, No acute distress HEENT: Atraumatic, PERRLA, EOMI, Mucous membr. moist/pink Lungs: Clear to auscultation, diminished air movement throughout Heart: RRR, no rubs, no gallops, no murmurs Abdomen: Normal bowel sounds, Soft, No tenderness, No hepatosplenomegaly Extremities: No clubbing, No cyanosis, No edema Skin: No rashes, No significant lesion Neuro: Normal speech, Normal tone, Cranial nerves 3-12 NL Psych/Mental Status: Mental status NL, Mood NL ASSESSMENT/PLAN Assessment/Plan Pt is a 81yo AAF admitted with concern for possible stroke 1)Facial/extremity numbness- CT and MRI WNL, likely 2/2 hypertensive encephalopathy. Pt's blood pressure still uncontrolled. [facility] has seen and evaluated pt. Pt on ASA 325mg 2)HTN- Pt restarted on home medications yesterday and still having poor control of blood pressure. Will increase pt's Norvasc to 10mg, start HCTZ 12.5mg and continue pt's Lasix 20mg and Clonidine 0.1mg BID. Will also have IV hydralazine available. Pt told to call to nurse if her symptoms worsen. 3)CKD- unsure of pt's baseline. Cr stable at 1.2, electrolytes WNL. CTM 4)Leukocytosis- resolved. No signs or symptoms of infection, likely reactive. Problems: COMMENT Lab Laboratory Tests Test 11/09/16 06:20 White Blood Count 8.7x10^3/uL (4.0-11.0) Red Blood Count 5.54x10^6/uL (3.50-5.40) Hemoglobin 11.9g/dL (12.0-15.5) Hematocrit 38.4% (36.0-47.0) Mean Corpuscular Volume 69fL (79-100) Mean Corpuscular Hemoglobin 21pg (25-35) Mean Corpuscular Hemoglobin Concent 31g/dL (31-37) Red Cell Distribution Width 15.9% (11.5-14.5) Platelet Count 222x10^3/uL (140-400) Neutrophils (%) (Auto) 47% (31-73) Lymphocytes (%) (Auto) 41% (24-48) Monocytes (%) (Auto) 9% (0-9) Eosinophils (%) (Auto) 2% (0-3) Basophils (%) (Auto) 1% (0-3) Neutrophils # (Auto) 4.1x10^3uL (1.8-7.7) Lymphocytes # (Auto) 3.6x10^3/uL (1.0-4.8) Monocytes # (Auto) 0.8x10^3/uL (0.0-1.1) Eosinophils # (Auto) 0.2x10^3/uL (0.0-0.7) Basophils # (Auto) 0.1x10^3/uL (0.0-0.2) Sodium Level 145mmol/L (136-145) Potassium Level 4.1mmol/L (3.5-5.1) Chloride Level 109mmol/L (98-107) Carbon Dioxide Level 26mmol/L (21-32) Anion Gap 10 (6-14) Blood Urea Nitrogen 20mg/dL (7-20) Creatinine 1.2mg/dL (0.6-1.0) Estimated GFR (Cockcroft-Gault) 52.3 Glucose Level 103mg/dL (70-99) Calcium Level 9.1mg/dL (8.5-10.1) FARAZ MAURO MD Nov 09, 2016 09:06
[2016-11-09] MEDS: hydrALAZINE 20 MG/ML VIAL. IVP PRN ×2 (09:43→15:18)
[2016-11-09] MEDS ORDERED: POTASSIUM CHLORIDE 10 MEQ TABLET.ER. PO ONE (09:45)
[2016-11-09] MEDS ORDERED: HYDROCHLOROTHIAZIDE 12.5 MG CAPSULE. PO SCH (10:00)
--- NOTE | 2016-11-09 13:16 | PDOC ---
PROGRESS NOTES Assessment Problems Medical Problems: (1) Numbness and tingling of left side of face Status: Acute (2) Numbness in right leg Status: Acute (3) Numbness of right hand Status: Acute Hypertensive encephalopathy, recurrent neurological symptoms with blood pressure spike last night, now doing better. No evidence of stroke on MRI or bedside exam Plan I see no need to repeat the MRI Agree with current blood pressure control Daily aspirin She is on WelChol at home she says, cholesterol medication management per primary service. Will follow Subjective Blood pressure spiked and she redeveloped left facial numbness and toe numbness. Now she just has some numbness in one toe of her right foot. Objective Vital Signs Date Time Temp Pulse Resp B/P Pulse Ox O2 Delivery O2 Flow Rate FiO2 11/09/16 11:04 74 172/62 11/09/16 11:00 97.7 18 98 Room Air 97.7 Intake and Output 11/09/16 07:00 Intake Total 680 ml Balance 680 ml Intake Oral 680 ml # Voids 5 PHYSICAL EXAM Alert. Oriented to time, place and person. PERRL. EOMI. CN: no focal findings. Muscle tone: normal. Muscle strength: 5/5 DTR: 2+ Plantar reflex: Flexor Gait: not examined in bed. Sensory exam: no abnormal findings. No cerebellar signs elicited. Review of Relevant I have reviewed the following items riky (where applicable) has been applied. Labs Laboratory Tests Test 11/08/16 04:00 11/09/16 06:20 White Blood Count 12.7x10^3/uL (4.0-11.0) 8.7x10^3/uL (4.0-11.0) Red Blood Count 5.61x10^6/uL (3.50-5.40) 5.54x10^6/uL (3.50-5.40) Hemoglobin 11.9g/dL (12.0-15.5) 11.9g/dL (12.0-15.5) Hematocrit 38.8% (36.0-47.0) 38.4% (36.0-47.0) Mean Corpuscular Volume 69fL (79-100) 69fL (79-100) Mean Corpuscular Hemoglobin 21pg (25-35) 21pg (25-35) Mean Corpuscular Hemoglobin Concent 31g/dL (31-37) 31g/dL (31-37) Red Cell Distribution Width 15.7% (11.5-14.5) 15.9% (11.5-14.5) Platelet Count 234x10^3/uL (140-400) 222x10^3/uL (140-400) Neutrophils (%) (Auto) 80% (31-73) 47% (31-73) Lymphocytes (%) (Auto) 14% (24-48) 41% (24-48) Monocytes (%) (Auto) 7% (0-9) 9% (0-9) Eosinophils (%) (Auto) 0% (0-3) 2% (0-3) Basophils (%) (Auto) 0% (0-3) 1% (0-3) Neutrophils # (Auto) 10.1x10^3uL (1.8-7.7) 4.1x10^3uL (1.8-7.7) Lymphocytes # (Auto) 1.7x10^3/uL (1.0-4.8) 3.6x10^3/uL (1.0-4.8) Monocytes # (Auto) 0.8x10^3/uL (0.0-1.1) 0.8x10^3/uL (0.0-1.1) Eosinophils # (Auto) 0.0x10^3/uL (0.0-0.7) 0.2x10^3/uL (0.0-0.7) Basophils # (Auto) 0.0x10^3/uL (0.0-0.2) 0.1x10^3/uL (0.0-0.2) Sodium Level 144mmol/L (136-145) 145mmol/L (136-145) Potassium Level 4.1mmol/L (3.5-5.1) 4.1mmol/L (3.5-5.1) Chloride Level 107mmol/L (98-107) 109mmol/L (98-107) Carbon Dioxide Level 24mmol/L (21-32) 26mmol/L (21-32) Anion Gap 13 (6-14) 10 (6-14) Blood Urea Nitrogen 19mg/dL (7-20) 20mg/dL (7-20) Creatinine 1.3mg/dL (0.6-1.0) 1.2mg/dL (0.6-1.0) Estimated GFR (Cockcroft-Gault) 47.7 52.3 Glucose Level 121mg/dL (70-99) 103mg/dL (70-99) Calcium Level 9.1mg/dL (8.5-10.1) 9.1mg/dL (8.5-10.1) Laboratory Tests Test 11/09/16 06:20 White Blood Count 8.7x10^3/uL (4.0-11.0) Red Blood Count 5.54x10^6/uL (3.50-5.40) Hemoglobin 11.9g/dL (12.0-15.5) Hematocrit 38.4% (36.0-47.0) Mean Corpuscular Volume 69fL (79-100) Mean Corpuscular Hemoglobin 21pg (25-35) Mean Corpuscular Hemoglobin Concent 31g/dL (31-37) Red Cell Distribution Width 15.9% (11.5-14.5) Platelet Count 222x10^3/uL (140-400) Neutrophils (%) (Auto) 47% (31-73) Lymphocytes (%) (Auto) 41% (24-48) Monocytes (%) (Auto) 9% (0-9) Eosinophils (%) (Auto) 2% (0-3) Basophils (%) (Auto) 1% (0-3) Neutrophils # (Auto) 4.1x10^3uL (1.8-7.7) Lymphocytes # (Auto) 3.6x10^3/uL (1.0-4.8) Monocytes # (Auto) 0.8x10^3/uL (0.0-1.1) Eosinophils # (Auto) 0.2x10^3/uL (0.0-0.7) Basophils # (Auto) 0.1x10^3/uL (0.0-0.2) Sodium Level 145mmol/L (136-145) Potassium Level 4.1mmol/L (3.5-5.1) Chloride Level 109mmol/L (98-107) Carbon Dioxide Level 26mmol/L (21-32) Anion Gap 10 (6-14) Blood Urea Nitrogen 20mg/dL (7-20) Creatinine 1.2mg/dL (0.6-1.0) Estimated GFR (Cockcroft-Gault) 52.3 Glucose Level 103mg/dL (70-99) Calcium Level 9.1mg/dL (8.5-10.1) Microbiology 11/07/16 Urine Culture - Preliminary, Resulted 11/07/16 Urine Culture Result 1 (DAVIS) - Preliminary, Resulted Medications Current Medications Labetalol HCl (Normodyne) 20 mg 1X ONCE IVP ; Start 11/07/16 at 13:45; Stop 06/16 at 13:50; Status DC Hydralazine HCl (Apresoline) 10 mg 1X ONCE IVP Last administered on 11/07/16 13:59; Start 11/07/16 at 14:00; Stop 11/07/16 at 14:01; Status DC Hydralazine HCl (Apresoline) 10 mg 1X ONCE IVP Last administered on 11/07/16 16:22; Start 11/07/16 at 16:00; Stop 11/07/16 at 16:02; Status DC Ondansetron HCl (Zofran) 4 mg PRN Q8HRS PRN IV NAUSEA/VOMITING Last administered on 11/07/16 17:08; Start 11/07/16 at 16:15; Stop 11/08/16 at 16:14 ; Status DC Morphine Sulfate 2 mg 2 mg PRN Q2HR PRN IV PAIN; Start 11/07/16 at 16:15; Stop 11/08/16 at 16:14; Status DC Promethazine HCl/ Sodium Chloride (Phenergan/Iv Sodium Chloride 0.9% 50ml) 50.25 ml @ 150.75 mls/ hr PRN Q6HRS PRN IV NAUSEA/VOMITING Last administered on 11/07/16 19:28; Start 11/07/16 at 18:45 Acetaminophen (Tylenol) 650 mg PRN Q6HRS PRN PO MILD PAIN / TEMP Last administered on 11/09/16 08:13; Start 11/07/16 at 20:00 Amlodipine Besylate (Norvasc) 5 mg DAILY PO Last administered on 11/09/16 08: 09; Start 11/08/16 at 09:30; Stop 11/09/16 at 09:02; Status DC Clonidine HCl (Catapres) 0.1 mg BID PO Last administered on 11/09/16 06:17; Start 11/08/16 at 09:30 Furosemide (Lasix) 20 mg DAILY PO Last administered on 11/09/16 08:09; Start 11/08/16 at 09:30 Losartan Potassium (Cozaar) 100 mg DAILY PO Last administered on 11/09/16 08: 08; Start 11/08/16 at 09:30 Potassium Chloride (Klor-Con) 10 meq DAILYWBKFT PO Last administered on 08:08; Start 11/08/16 at 09:30 Aspirin ([employer] Aspirin) 325 mg DAILYWBKFT PO Last administered on 11/09/16 08: 07; Start 11/08/16 at 09:00 Gadobutrol (Gadavist) 7 mmol 1X ONCE IV Last administered on 11/08/16 12:40; Start 11/08/16 at 12:30; Stop 11/08/16 at 12:31; Status DC Amlodipine Besylate (Norvasc) 10 mg DAILY PO ; Start 11/10/16 at 09:00 Hydrochlorothiazide (Microzide) 12.5 mg DAILY PO Last administered on 09:43; Start 11/09/16 at 10:00 Hydralazine HCl (Apresoline) 10 mg PRN Q4HRS PRN IVP ELEVATED BP, SEE COMMENTS Last administered on 11/09/16 09:43; Start 11/09/16 at 09:00 Potassium Chloride (Klor-Con) 10 meq 1X ONCE PO Last administered on 09:43; Start 11/09/16 at 09:45; Stop 11/09/16 at 09:46; Status DC Active Scripts Active Reported Fish Oil ([place]-3 Fatty Acids) 500 Mg Capsule. Unknown Dose PO DAILY Vitamin D (Cholecalciferol (Vitamin D3)) 1,000 Unit Capsule Unknown Dose PO DAILY Aspirin 81 Mg Tab.chew 1 Tab PO DAILY Welchol (Colesevelam Hcl) 3.75 Gm Powd.pack 3.75 Gm PO DAILY Losartan Potassium 25 Mg Tablet Unknown Dose PO DAILY Furosemide 20 Mg Tablet Unknown Dose PO DAILY Potassium Chloride 10 Meq Capsule.er Unknown Dose PO DAILY Amlodipine Besylate 10 Mg Tablet 10 Mg PO DAILY Clonidine Hcl 0.1 Mg Tablet Unknown Dose PO BID Vitals/I & O Vital Sign - Last 24 Hours 11/08/16 11/08/16 11/08/16 11/08/16 15:40 19:00 20:00 21:18 Temp 97.9 98.3 97.9 98.3 Pulse 94 60 60 Resp B/P 148/64 131/62 131/62 Pulse Ox 98 97 O2 Delivery Room Air Room Air Room Air 11/08/16 11/09/16 11/09/16 11/09/16 22:00 03:00 06:17 07:00 Temp 98.1 97.9 98.1 98.1 97.9 98.1 Pulse 60 52 72 69 Resp 17 18 18 B/P 165/56 147/48 213/81 197/72 Pulse Ox 98 96 97 O2 Delivery Room Air Room Air Room Air 11/09/16 11/09/16 11/09/16 11/09/16 08:00 08:08 08:09 09:43 Pulse 69 69 69 B/P 197/72 197/72 180/69 O2 Delivery Room Air 11/09/16 11/09/16 11:00 11:04 Temp 97.7 97.7 Pulse 72 74 Resp 18 B/P 185/69 172/62 Pulse Ox 98 O2 Delivery Room Air Intake and Output 11/08/16 11/08/16 11/09/16 15:00 23:00 07:00 Intake Total 380 ml 300 ml Balance 380 ml 300 ml Images MRI brain: 1. Spotty areas of increased signal in both periventricular and subcortical deep white matter suggesting small vessel ischemic changes. 2. No acute abnormality identified. ELSIE DEL RIO MD Nov 09, 2016 13:16
[2016-11-10 03:35] VITALS: BP 141/70
[2016-11-10] MEDS: ACETAMINOPHEN 325 MG TABLET. PO PRN ×2 (05:26→11:37)
[2016-11-10 07:15] VITALS: BP 172/80
[2016-11-10] MEDS: ASPIRIN 325 MG TABLET PO SCH (08:34)
[2016-11-10] MEDS: POTASSIUM CHLORIDE 10 MEQ TABLET.ER. PO SCH (08:35)
[2016-11-10] MEDS: CLONIDINE HCL 0.1 MG TABLET PO SCH (08:35)
[2016-11-10] MEDS: LOSARTAN POTASSIUM 50 MG TABLET. PO SCH (08:36)
[2016-11-10] MEDS: FUROSEMIDE 20 MG TABLET PO SCH (08:36)
[2016-11-10] MEDS: hydrALAZINE 20 MG/ML VIAL. IVP PRN (08:39)
[2016-11-10] MEDS ORDERED: HYDR25TA9 PO (08:51)
[2016-11-10] MEDS ORDERED: LOSA100T6 PO (08:51)
--- NOTE | 2016-11-10 08:58 | PDOC ---
PROGRESS NOTES Subjective Subjective Patient reports she had a little tingling in her face yesterday when her BP was elevated, this has resolved. Objective Objective Vital Signs Date Time Temp Pulse Resp B/P Pulse Ox O2 Delivery O2 Flow Rate FiO2 11/10/16 07:15 98.6 74 20 172/80 97 Room Air 98.6 Intake and Output 11/10/16 07:00 Intake Total 620 ml Balance 620 ml Intake Oral 620 ml # Voids 6 Physical Exam Abdomen: Normal bowel sounds, Soft, No tenderness Heart: Regular rate Extremities: No edema General: Alert, Oriented X3, No acute distress Lungs: Clear to auscultation Assessment Assessment Problems Medical Problems: (1) Hypertensive encephalopathy Status: Acute (2) Numbness and tingling of left side of face Status: Acute (3) Numbness in right leg Status: Acute (4) Numbness of right hand Status: Acute Plan Plan of Care 1. Uncontrolled HTN - much improved from admission. Will receive increased doses of HCTZ and Amlodipine this AM, as well as her usual Clonidine and the Losartan that was increased earlier in her hospital stay. Anticipate patient will be able to return home later today, patient in agreement. 2. hypertensive encephalopathy - resolving as BP control improves. MRI without acute findings. Continue ASA daily. 3. CKD - creatinine very mildly elevated but stable. 4. abnormal UA - urine culture without significant growth, no abx indicated. Comment Review of Relevant I have reviewed the following items riky (where applicable) has been applied. Labs Laboratory Tests Test 11/09/16 06:20 White Blood Count 8.7x10^3/uL (4.0-11.0) Red Blood Count 5.54x10^6/uL (3.50-5.40) Hemoglobin 11.9g/dL (12.0-15.5) Hematocrit 38.4% (36.0-47.0) Mean Corpuscular Volume 69fL (79-100) Mean Corpuscular Hemoglobin 21pg (25-35) Mean Corpuscular Hemoglobin Concent 31g/dL (31-37) Red Cell Distribution Width 15.9% (11.5-14.5) Platelet Count 222x10^3/uL (140-400) Neutrophils (%) (Auto) 47% (31-73) Lymphocytes (%) (Auto) 41% (24-48) Monocytes (%) (Auto) 9% (0-9) Eosinophils (%) (Auto) 2% (0-3) Basophils (%) (Auto) 1% (0-3) Neutrophils # (Auto) 4.1x10^3uL (1.8-7.7) Lymphocytes # (Auto) 3.6x10^3/uL (1.0-4.8) Monocytes # (Auto) 0.8x10^3/uL (0.0-1.1) Eosinophils # (Auto) 0.2x10^3/uL (0.0-0.7) Basophils # (Auto) 0.1x10^3/uL (0.0-0.2) Sodium Level 145mmol/L (136-145) Potassium Level 4.1mmol/L (3.5-5.1) Chloride Level 109mmol/L (98-107) Carbon Dioxide Level 26mmol/L (21-32) Anion Gap 10 (6-14) Blood Urea Nitrogen 20mg/dL (7-20) Creatinine 1.2mg/dL (0.6-1.0) Estimated GFR (Cockcroft-Gault) 52.3 Glucose Level 103mg/dL (70-99) Calcium Level 9.1mg/dL (8.5-10.1) Microbiology 11/07/16 Urine Culture - Final, Complete 11/07/16 Urine Culture Result 1 (DAVIS) - Final, Complete Medications Current Medications Labetalol HCl (Normodyne) 20 mg 1X ONCE IVP ; Start 11/07/16 at 13:45; Stop 06/16 at 13:50; Status DC Hydralazine HCl (Apresoline) 10 mg 1X ONCE IVP Last administered on 11/07/16 13:59; Start 11/07/16 at 14:00; Stop 11/07/16 at 14:01; Status DC Hydralazine HCl (Apresoline) 10 mg 1X ONCE IVP Last administered on 11/07/16 16:22; Start 11/07/16 at 16:00; Stop 11/07/16 at 16:02; Status DC Ondansetron HCl (Zofran) 4 mg PRN Q8HRS PRN IV NAUSEA/VOMITING Last administered on 11/07/16 17:08; Start 11/07/16 at 16:15; Stop 11/08/16 at 16:14 ; Status DC Morphine Sulfate 2 mg 2 mg PRN Q2HR PRN IV PAIN; Start 11/07/16 at 16:15; Stop 11/08/16 at 16:14; Status DC Promethazine HCl/ Sodium Chloride (Phenergan/Iv Sodium Chloride 0.9% 50ml) 50.25 ml @ 150.75 mls/ hr PRN Q6HRS PRN IV NAUSEA/VOMITING Last administered on 11/07/16 19:28; Start 11/07/16 at 18:45 Acetaminophen (Tylenol) 650 mg PRN Q6HRS PRN PO MILD PAIN / TEMP Last administered on 11/10/16 05:26; Start 11/07/16 at 20:00 Amlodipine Besylate (Norvasc) 5 mg DAILY PO Last administered on 11/09/16 08: 09; Start 11/08/16 at 09:30; Stop 11/09/16 at 09:02; Status DC Clonidine HCl (Catapres) 0.1 mg BID PO Last administered on 11/09/16 20:28; Start 11/08/16 at 09:30 Furosemide (Lasix) 20 mg DAILY PO Last administered on 11/09/16 08:09; Start 11/08/16 at 09:30 Losartan Potassium (Cozaar) 100 mg DAILY PO Last administered on 11/09/16 08: 08; Start 11/08/16 at 09:30 Potassium Chloride (Klor-Con) 10 meq DAILYWBKFT PO Last administered on 08:08; Start 11/08/16 at 09:30 Aspirin (Dahlia Aspirin) 325 mg DAILYWBKFT PO Last administered on 11/09/16 08: 07; Start 11/08/16 at 09:00 Gadobutrol (Gadavist) 7 mmol 1X ONCE IV Last administered on 11/08/16 12:40; Start 11/08/16 at 12:30; Stop 11/08/16 at 12:31; Status DC Amlodipine Besylate (Norvasc) 10 mg DAILY PO ; Start 11/10/16 at 09:00 Hydrochlorothiazide (Microzide) 12.5 mg DAILY PO Last administered on 3/12/ 17at 09:43; Start 11/09/16 at 10:00 Hydralazine HCl (Apresoline) 10 mg PRN Q4HRS PRN IVP ELEVATED BP, SEE COMMENTS Last administered on 11/09/16 15:18; Start 11/09/16 at 09:00 Potassium Chloride (Klor-Con) 10 meq 1X ONCE PO Last administered on 09:43; Start 11/09/16 at 09:45; Stop 11/09/16 at 09:46; Status DC Active Scripts Active Reported Fish Oil ([place]-3 Fatty Acids) 500 Mg Capsule. Unknown Dose PO DAILY Vitamin D (Cholecalciferol (Vitamin D3)) 1,000 Unit Capsule Unknown Dose PO DAILY Aspirin 81 Mg Tab.chew 1 Tab PO DAILY Welchol (Colesevelam Hcl) 3.75 Gm Powd.pack 3.75 Gm PO DAILY Losartan Potassium 25 Mg Tablet Unknown Dose PO DAILY Furosemide 20 Mg Tablet Unknown Dose PO DAILY Potassium Chloride 10 Meq Capsule.er Unknown Dose PO DAILY Amlodipine Besylate 10 Mg Tablet 10 Mg PO DAILY Clonidine Hcl 0.1 Mg Tablet Unknown Dose PO BID Vitals/I & O Vital Sign - Last 24 Hours 11/09/16 11/09/16 11/09/16 11/09/16 09:43 11:00 11:04 15:00 Temp 97.7 98.6 97.7 98.6 Pulse 69 72 74 75 Resp 18 18 B/P 180/69 185/69 172/62 174/67 Pulse Ox 98 99 O2 Delivery Room Air Room Air 11/09/16 11/09/16 11/09/16 11/09/16 15:18 16:11 19:49 20:00 Temp 98.8 98.8 Pulse 75 83 79 Resp 20 B/P 174/67 152/56 167/69 Pulse Ox 97 O2 Delivery Room Air Room Air 11/09/16 11/09/16 11/10/16 11/10/16 20:28 23:33 03:35 07:15 Temp 98.8 99.1 98.6 98.8 99.1 98.6 Pulse 79 60 60 74 Resp 20 20 20 B/P 167/69 141/70 141/70 172/80 Pulse Ox 97 98 97 O2 Delivery Nasal Cannula Room Air Room Air Intake and Output 11/09/16 11/09/16 11/10/16 15:00 23:00 07:00 Intake Total 500 ml 120 ml Balance 500 ml 120 ml ELIANA EMANUEL MD Nov 10, 2016 08:57
[2016-11-10] MEDS ORDERED: AMLODIPINE BESYLATE 10 MG TABLET PO SCH (09:00)
[2016-11-10] MEDS ORDERED: HYDROCHLOROTHIAZIDE 12.5 MG CAPSULE. PO SCH (09:00)
--- NOTE | 2016-11-10 09:51 | DS ---
DATE OF DISCHARGE: 11/10/2016 CHIEF COMPLAINT: Numbness in the left side of face and right arm. HISTORY OF PRESENT ILLNESS: The patient is an 81-year-old female, who saw Dr. Gill in our office yesterday with the above complaint. She reported that her symptoms had been intermittent for about 2 weeks. When seen in the office, she had a significantly elevated blood pressure despite taking her usual antihypertensive medication. She was evaluated in the Emergency Room and admitted for further treatment. HOSPITAL COURSE: The patient was admitted and seen in consultation by Neurology. A CT of the head without contrast and a subsequent MRI of the brain showed no acute findings, but some mild chronic microvascular changes. The patient had an initial blood pressure of 202/85. This was treated with IV and oral medications. Her home medications were increased and some new medications added and her blood pressure control is much improved, although it was still above goal yesterday. She will receive an increased dose of amlodipine and hydrochlorothiazide this morning, and if her blood pressure is improved enough, she will be discharged to home this afternoon. The patient has some very mild chronic kidney disease, which has been stable on the lab. Her urinalysis at admission was mildly abnormal with 5-10 wbc's present; a urine culture shows only mixed urogenital katelynn and therefore, no antibiotic treatment is indicated at this time. Neurology felt that the patient's intermittent symptoms were consistent with hypertensive encephalopathy as they improved as her blood pressure control improved. There was no evidence of acute CVA. FINAL DIAGNOSES: 1. Hypertensive encephalopathy. 2. Uncontrolled hypertension. 3. Chronic kidney disease. DISCHARGE MEDICATIONS: Amlodipine 10 mg daily, hydrochlorothiazide 25 mg daily, losartan 100 mg daily, aspirin 81 mg daily, vitamin D3 1000 units daily, clonidine 0.1 mg b.i.d., Welchol 3.75 grams daily, furosemide 20 mg daily, and potassium 10 mEq daily. FOLLOWUP: Followup is with Dr. Gill within 1 week. ELIANA EMANUEL MD DR: KARLA/[email or web address] JOB#: [id number] / [id number] VINCE
--- NOTE | 2016-11-10 10:58 | PDOC ---
PROGRESS NOTES Assessment Problems Medical Problems: (1) Hypertensive encephalopathy Status: Acute (2) Numbness and tingling of left side of face Status: Acute (3) Numbness in right leg Status: Acute (4) Numbness of right hand Status: Acute Hypertensive encephalopathy, recurrent neurological symptoms with blood pressure spike last night, now doing better. No evidence of stroke on MRI or bedside exam Plan Home today if blood pressure stable Follow-up with neurology is needed Subjective No more neurological symptoms Objective Vital Signs Date Time Temp Pulse Resp B/P Pulse Ox O2 Delivery O2 Flow Rate FiO2 11/10/16 08:39 74 172/80 11/10/16 08:00 Room Air 11/10/16 07:15 98.6 20 97 98.6 Intake and Output 11/10/16 07:00 Intake Total 620 ml Balance 620 ml Intake Oral 620 ml # Voids 6 PHYSICAL EXAM Alert. Oriented to time, place and person. PERRL. EOMI. CN: no focal findings. Muscle tone: normal. Muscle strength: 5/5 DTR: 2+ Plantar reflex: Flexor Gait: normal. Sensory exam: no abnormal findings. No cerebellar signs elicited. Review of Relevant I have reviewed the following items riky (where applicable) has been applied. Labs Laboratory Tests Test 11/09/16 06:20 White Blood Count 8.7x10^3/uL (4.0-11.0) Red Blood Count 5.54x10^6/uL (3.50-5.40) Hemoglobin 11.9g/dL (12.0-15.5) Hematocrit 38.4% (36.0-47.0) Mean Corpuscular Volume 69fL (79-100) Mean Corpuscular Hemoglobin 21pg (25-35) Mean Corpuscular Hemoglobin Concent 31g/dL (31-37) Red Cell Distribution Width 15.9% (11.5-14.5) Platelet Count 222x10^3/uL (140-400) Neutrophils (%) (Auto) 47% (31-73) Lymphocytes (%) (Auto) 41% (24-48) Monocytes (%) (Auto) 9% (0-9) Eosinophils (%) (Auto) 2% (0-3) Basophils (%) (Auto) 1% (0-3) Neutrophils # (Auto) 4.1x10^3uL (1.8-7.7) Lymphocytes # (Auto) 3.6x10^3/uL (1.0-4.8) Monocytes # (Auto) 0.8x10^3/uL (0.0-1.1) Eosinophils # (Auto) 0.2x10^3/uL (0.0-0.7) Basophils # (Auto) 0.1x10^3/uL (0.0-0.2) Sodium Level 145mmol/L (136-145) Potassium Level 4.1mmol/L (3.5-5.1) Chloride Level 109mmol/L (98-107) Carbon Dioxide Level 26mmol/L (21-32) Anion Gap 10 (6-14) Blood Urea Nitrogen 20mg/dL (7-20) Creatinine 1.2mg/dL (0.6-1.0) Estimated GFR (Cockcroft-Gault) 52.3 Glucose Level 103mg/dL (70-99) Calcium Level 9.1mg/dL (8.5-10.1) Microbiology 11/07/16 Urine Culture - Final, Complete 11/07/16 Urine Culture Result 1 (DAVIS) - Final, Complete Medications Current Medications Labetalol HCl (Normodyne) 20 mg 1X ONCE IVP ; Start 11/07/16 at 13:45; Stop 06/16 at 13:50; Status DC Hydralazine HCl (Apresoline) 10 mg 1X ONCE IVP Last administered on 11/07/16 13:59; Start 11/07/16 at 14:00; Stop 11/07/16 at 14:01; Status DC Hydralazine HCl (Apresoline) 10 mg 1X ONCE IVP Last administered on 11/07/16 16:22; Start 11/07/16 at 16:00; Stop 11/07/16 at 16:02; Status DC Ondansetron HCl (Zofran) 4 mg PRN Q8HRS PRN IV NAUSEA/VOMITING Last administered on 11/07/16 17:08; Start 11/07/16 at 16:15; Stop 11/08/16 at 16:14 ; Status DC Morphine Sulfate 2 mg 2 mg PRN Q2HR PRN IV PAIN; Start 11/07/16 at 16:15; Stop 11/08/16 at 16:14; Status DC Promethazine HCl/ Sodium Chloride (Phenergan/Iv Sodium Chloride 0.9% 50ml) 50.25 ml @ 150.75 mls/ hr PRN Q6HRS PRN IV NAUSEA/VOMITING Last administered on 11/07/16 19:28; Start 11/07/16 at 18:45 Acetaminophen (Tylenol) 650 mg PRN Q6HRS PRN PO MILD PAIN / TEMP Last administered on 11/10/16 05:26; Start 11/07/16 at 20:00 Amlodipine Besylate (Norvasc) 5 mg DAILY PO Last administered on 11/09/16 08: 09; Start 11/08/16 at 09:30; Stop 11/09/16 at 09:02; Status DC Clonidine HCl (Catapres) 0.1 mg BID PO Last administered on 11/10/16 08:35; Start 11/08/16 at 09:30 Furosemide (Lasix) 20 mg DAILY PO Last administered on 11/10/16 08:36; Start 11/08/16 at 09:30 Losartan Potassium (Cozaar) 100 mg DAILY PO Last administered on 11/10/16 08: 36; Start 11/08/16 at 09:30 Potassium Chloride (Klor-Con) 10 meq DAILYWBKFT PO Last administered on 08:35; Start 11/08/16 at 09:30 Aspirin (Dahlia Aspirin) 325 mg DAILYWBKFT PO Last administered on 11/10/16 08: 34; Start 11/08/16 at 09:00 Gadobutrol (Gadavist) 7 mmol 1X ONCE IV Last administered on 11/08/16 12:40; Start 11/08/16 at 12:30; Stop 11/08/16 at 12:31; Status DC Amlodipine Besylate (Norvasc) 10 mg DAILY PO Last administered on 11/10/16 08: 37; Start 11/10/16 at 09:00 Hydrochlorothiazide (Microzide) 12.5 mg DAILY PO Last administered on 09:43; Start 11/09/16 at 10:00; Stop 11/10/16 at 08:39; Status DC Hydralazine HCl (Apresoline) 10 mg PRN Q4HRS PRN IVP ELEVATED BP, SEE COMMENTS Last administered on 11/10/16 08:39; Start 11/09/16 at 09:00 Potassium Chloride (Klor-Con) 10 meq 1X ONCE PO Last administered on 09:43; Start 11/09/16 at 09:45; Stop 11/09/16 at 09:46; Status DC Hydrochlorothiazide (Microzide) 25 mg DAILY PO Last administered on 11/10/16 08:47; Start 11/10/16 at 09:00 Active Scripts Active Reported Fish Oil ([place]-3 Fatty Acids) 500 Mg Capsule. Unknown Dose PO DAILY Vitamin D (Cholecalciferol (Vitamin D3)) 1,000 Unit Capsule Unknown Dose PO DAILY Aspirin 81 Mg Tab.chew 1 Tab PO DAILY Welchol (Colesevelam Hcl) 3.75 Gm Powd.pack 3.75 Gm PO DAILY Losartan Potassium 25 Mg Tablet Unknown Dose PO DAILY Furosemide 20 Mg Tablet Unknown Dose PO DAILY Potassium Chloride 10 Meq Capsule.er Unknown Dose PO DAILY Amlodipine Besylate 10 Mg Tablet 10 Mg PO DAILY Clonidine Hcl 0.1 Mg Tablet Unknown Dose PO BID Vitals/I & O Vital Sign - Last 24 Hours 11/09/16 11/09/16 11/09/16 11/09/16 11:00 11:04 15:00 15:18 Temp 97.7 98.6 97.7 98.6 Pulse 72 74 75 75 Resp 18 18 B/P 185/69 172/62 174/67 174/67 Pulse Ox 98 99 O2 Delivery Room Air Room Air 11/09/16 11/09/16 11/09/16 11/09/16 16:11 19:49 20:00 20:28 Temp 98.8 98.8 Pulse 83 79 79 Resp 20 B/P 152/56 167/69 167/69 Pulse Ox 97 O2 Delivery Room Air Room Air 11/09/16 11/10/16 11/10/16 11/10/16 23:33 03:35 07:15 08:00 Temp 98.8 99.1 98.6 98.8 99.1 98.6 Pulse 60 60 74 Resp 20 20 20 B/P 141/70 141/70 172/80 Pulse Ox 97 98 97 O2 Delivery Nasal Cannula Room Air Room Air Room Air 11/10/16 11/10/16 11/10/1613/17 08:35 08:36 08:37 08:39 Pulse 74 74 74 74 B/P 172/80 172/80 172/80 172/80 Intake and Output 11/09/16 11/09/16 11/10/16 15:00 23:00 07:00 Intake Total 500 ml 120 ml Balance 500 ml 120 ml ELSIE DEL RIO MD Nov 10, 2016 10:58
[2016-11-10 11:09] VITALS: BP 137/60
[2016-11-10 15:10] VITALS: BP 136/54
[2016-11-10 17:23] VITALS: BP 154/66
== END 2016-11-10 17:42 | disposition home or self-care (01) ==
LOC: ER 12:20 → 6 SOUTH 15:52
PROVIDERS: ADMIT Family Medicine; ATTEND Family Medicine
DX: I67.4 Hypertensive encephalopathy (principal); M19.90 Unspecified osteoarthritis, unspecified site; D72.829 Elevated white blood cell count, unspecified; E78.00 Pure hypercholesterolemia, unspecified; E78.5 Hyperlipidemia, unspecified; E11.22 Type 2 diabetes mellitus with diabetic chronic kidney disease; I12.9 Hypertensive chronic kidney disease with stage 1 through stage 4 chronic kidney disease, or unspecified chronic kidney disease; N18.2 Chronic kidney disease, stage 2 (mild); Z90.710 Acquired absence of both cervix and uterus; Z82.49 Family history of ischemic heart disease and other diseases of the circulatory system
CPT/HCPCS: 36415; 70450; 70553; 71010; 80048; 80076; 81001; 83690; 84484; 85007; 85027; 85610; 85730; 87086; 93005; 96365; 96375; 96376; A9585; G0378; G0379; J0360; J2405; J2550

== ENCOUNTER → 2019-02-11 | Outpatient (CLI) | payer BC ==
[~2019-02-11] MED LIST: AMLO10TA8 PO; ASPI-630 PO; CHOL100013 PO; CLON0.1T PO; COLE3.753 PO; FURO20TA3 PO; HYDR-2145 PO; LOSA100T14 PO; LOSA25TA54 PO; OMEG500C PO; POTA10TA12 PO
--- NOTE | 2019-02-11 12:27 | KCIC ---
MR of the right thigh HISTORY: Right thigh pain, possible mass. TECHNIQUE: Routine multiplanar sequences are obtained through the right thigh. FINDINGS: Small fatty mass within the lateral aspect of the vastus intermedius muscle at the distal thigh, measures 15 mm AP by 10 mm wide by 45 mm longitudinal. Homogeneous fatty signal without significant nonfatty component, compatible with a small lipoma. No evidence of nonfatty mass. No significant edema or fluid collection. Muscle tissue is otherwise intact. Visualized bones are intact without marrow edema, acute fracture or periosteal reaction. IMPRESSION: 1. Small fatty mass within the lateral aspect of the vastus lateralis muscle compatible with an intramuscular lipoma. 2. No acute findings. Electronically signed by: Jersey Dias MD (02/11/2019 12:24 PM) [id number]
== END | disposition home or self-care (01) ==
LOC: KCIC MRI 09:50
PROVIDERS: ATTEND Orthopaedic Surgery
DX: R22.41 Localized swelling, mass and lump, right lower limb (principal)
CPT/HCPCS: 73718